=== PATIENT | male | born 1930 | race Caucasian/White ===

== ENCOUNTER 2016-12-08 02:27 | Inpatient (IN) | payer MEDICARE, BC ==
[~2016-12-08] VITALS: Ht 172.7 cm; Wt 84.9 kg
[2016-12-08 03:32] LABS: HEMOGLOBIN 14.4 gm/dl (14.0-17.5); RED BLOOD COUNT 4.65 M/UL (4.20-5.50); WHITE BLOOD COUNT 8.8 K/UL (4.5-11.0)
[2016-12-08] MEDS ORDERED: ASPIRIN CHEWABL81 MG PO (06:15)
[2016-12-08] MEDS ORDERED: PLAVIX 75 MG TA75 MG PO (06:16)
[2016-12-08] MEDS ORDERED: COZAAR 25MG TAB25 MG PO (06:16)
[2016-12-08] MEDS ORDERED: PROTONIX40 MG PO (06:17)
[2016-12-08] MEDS ORDERED: FUROSEMIDE20 MG PO (06:18)
[2016-12-08] MEDS ORDERED: ALBUTEROL0.63 MG/3 INH (06:19)
[2016-12-08] MEDS ORDERED: TROSPIUM CHLORI60 MG PO (06:19)
[2016-12-08] MEDS ORDERED: METOPROLOL SUCC25 MG PO (06:21)
[2016-12-08] MEDS ORDERED: CRESTOR10 MG PO (06:22)
[2016-12-08] MEDS ORDERED: ROPINIROLE HCL4 M1 PO (06:23)
[2016-12-08] MEDS ORDERED: LEVOTHYROXINE88 MCG PO (06:23)
[2016-12-08] MEDS ORDERED: PROAIR HFA8.5 GM INH (06:24)
[2016-12-08 07:08] LABS: HEMOGLOBIN 13.4 gm/dl (14.0-17.5); RED BLOOD COUNT 4.36 M/UL (4.20-5.50); WHITE BLOOD COUNT 8.8 K/UL (4.5-11.0)
[2016-12-08] MEDS ORDERED: PROSCAR 5 MG TAB5 MG PO (07:18)
[2016-12-09 04:08] LABS: HEMOGLOBIN 13.4 gm/dl (14.0-17.5); RED BLOOD COUNT 4.42 M/UL (4.20-5.50); WHITE BLOOD COUNT 8.6 K/UL (4.5-11.0)
[2016-12-09 04:31] LABS: BUN/CREATININE RATIO 28 (0-10)
[2016-12-09] MEDS ORDERED: IMDUR ER TAB 3030 MG PO (14:57)
== END 2016-12-09 15:50 | disposition home or self-care (01) | DRG 311 ==
LOC: ER1 02:27 → ZEROF 04:21 → PROG CARE 04:21
PROVIDERS: Emergency Medicine; ADMIT Hospitalist
DX: I20.0 Unstable angina (principal); J98.11 Atelectasis; I16.0 Hypertensive urgency; I71.4 Abdominal aortic aneurysm, without rupture; I10 Essential (primary) hypertension; E03.9 Hypothyroidism, unspecified; E78.5 Hyperlipidemia, unspecified; N40.0 Benign prostatic hyperplasia without lower urinary tract symptoms; Z87.891 Personal history of nicotine dependence; Z86.718 Personal history of other venous thrombosis and embolism; Z86.73 Personal history of transient ischemic attack (TIA), and cerebral infarction without residual deficits; Z28.21 Immunization not carried out because of patient refusal; Z72.3 Lack of physical exercise; Z79.02 Long term (current) use of antithrombotics/antiplatelets; Z79.82 Long term (current) use of aspirin; Z79.899 Other long term (current) drug therapy; Z90.49 Acquired absence of other specified parts of digestive tract; Z98.890 Other specified postprocedural states; Z82.49 Family history of ischemic heart disease and other diseases of the circulatory system
CPT/HCPCS: ECHO; 36415; 71010; 80048; 80053; 80061; 82550; 82553; 83036; 83880; 84153; 84436; 84439; 84443; 84480; 84484; 85025; 85027; 85379; 93005; 93306; 93970; 94640; 94664; 99285; J7030; J7050; Q9963